=== PATIENT | female | born 1990 | race Asian ===

== ENCOUNTER 2020-04-19 06:31 | Inpatient (IN) | payer MEDICAID ==
[~2020-04-19] VITALS: Ht 167.6 cm; Wt 113.4 kg
[2020-04-19] MEDS ORDERED: LACTATED RINGERS 1,000 ML IV SCH (07:00)
[2020-04-19] MEDS ORDERED: DEXT 5%/LR + PITOCIN 20UNITS/L 1,000 ML IV SCH (07:18)
[2020-04-19] MEDS ORDERED: PREN-176 PO (07:20)
[2020-04-19] MEDS ORDERED: ASPI-1497 PO (07:20)
[2020-04-19] MEDS ORDERED: LIDOCAINE HCL 1% 20ML VIAL (Pyxis) INJ INFIL NR (07:30)
[2020-04-19] MEDS ORDERED: IBUPROFEN 400MG TABLET PO PRN (07:30)
[2020-04-19] MEDS ORDERED: RHO(D) IMMUNE GLOBULIN 300 MCG/SYR IM PRN (07:30)
[2020-04-19] MEDS ORDERED: IBUPROFEN 800MG TABLET PO PRN (07:30)
[2020-04-19 07:50] LABS: BASOPHILS % 0.3 % (0.0-2.0); EOSINOPHILS % 1.5 % (0.0-5.0); HEMATOCRIT. 32.5 % (36.0-48.0); HEMOGLOBIN. 11.2 g/dL (12.0-16.0); LYMPHOCYTES % 12.6 % (20.0-50.0); MEAN CORPUSCULAR HEMOGLOBIN 31.4 pg (28.0-32.0); MEAN CORPUSCULAR VOLUME 91.4 fL (81.0-99.0); MEAN PLATELET VOLUME 8.9 fl (7.4-10.4); NEUTROPHILS % 79.6 % (40.0-76.0); PLATELET 176 x1000/uL (130-400); RED BLOOD CELL COUNT 3.56 mill/uL (4.2-5.4); RED CELL DISTRIBUTION WIDTH 12.9 % (11.6-14.6)
[2020-04-19 07:58] LABS: INR 0.9; PARTIAL THROMBOPLASTIN TIME 30.5 sec (23.4-31.0); PROTHROMBIN TIME 9.8 sec (9.6-11.0)
[2020-04-19] MEDS ORDERED: AMPICILLIN 2,000 MG in SODIUM CHLORIDE 0.9% 100 ML IV SCH (08:00)
[2020-04-19 08:25] LABS: HEPATITIS B SURFACE ANTIGEN NEGATIVE
[2020-04-19] MEDS ORDERED: ASPIRIN 81MG TABLET PO SCH (09:00)
[2020-04-19 09:30] VITALS: BP 118/74
[2020-04-19 10:00] VITALS: BP 121/72
[2020-04-19 10:04] LABS: CLARITY URINE CLOUDY (CLEAR); KETONES URINE NEGATIVE (NEGATIVE); LEUKOCYTE ESTERASE URINE TRACE (NEGATIVE); NITRITE URINE NEGATIVE (NEGATIVE); OCCULT BLOOD URINE 3+ (NEGATIVE); PROTEIN URINE NEGATIVE (NEGATIVE); SPECIFIC GRAVITY URINE 1.013 (1.005-1.030); UROBILINOGEN URINE 0.2 E.U./dL (0.2-1.0)
[2020-04-19 10:08] LABS: COLOR URINE ORANGE (YELLOW)
[2020-04-19 11:45] LABS: *AMPHETAMINES SCREEN URINE NEGATIVE (NEGATIVE); *COCAINE SCREEN URINE NEGATIVE (NEGATIVE)
[2020-04-19 11:46] LABS: *BENZODIAZEPINES SCREEN URINE NEGATIVE (NEGATIVE); CANNABINOID URINE SCREEN NEGATIVE (NEGATIVE); METHADONE URINE SCREEN NEGATIVE (NEGATIVE); OPIATES URINE SCREEN NEGATIVE (NEGATIVE)
[2020-04-19 11:48] LABS: *BARBITURATES SCREEN URINE NEGATIVE (NEGATIVE)
[2020-04-19 11:49] LABS: PHENCYCLIDINE URINE SCREEN NEGATIVE (NEGATIVE)
[2020-04-19] MEDS: AMPICILLIN 1,000 MG in SODIUM CHLORIDE 0.9% 50 ML IV SCH ×2 (14:02→20:21)
[2020-04-19 17:05] VITALS: BP 122/82
[2020-04-19 19:30] VITALS: BP 112/63
[2020-04-20] MEDS: AMPICILLIN 1,000 MG in SODIUM CHLORIDE 0.9% 50 ML IV SCH ×2 (02:10→08:08)
[2020-04-20 04:00] VITALS: BP 118/73
[2020-04-20 06:28] LABS: BASOPHILS % 0.5 % (0.0-2.0); EOSINOPHILS % 2.2 % (0.0-5.0); HEMATOCRIT. 28.4 % (36.0-48.0); HEMOGLOBIN. 9.8 g/dL (12.0-16.0); LYMPHOCYTES % 20.9 % (20.0-50.0); MEAN CORPUSCULAR HEMOGLOBIN 31.3 pg (28.0-32.0); MEAN CORPUSCULAR VOLUME 90.9 fL (81.0-99.0); MEAN PLATELET VOLUME 8.9 fl (7.4-10.4); MONOCYTES % 6.3 % (2.0-8.0); NEUTROPHILS % 70.1 % (40.0-76.0); PLATELET 185 x1000/uL (130-400); RED BLOOD CELL COUNT 3.13 mill/uL (4.2-5.4); RED CELL DISTRIBUTION WIDTH 13.1 % (11.6-14.6)
[2020-04-20 07:30] VITALS: BP 116/72
[2020-04-20 18:00] VITALS: BP 123/80
[2020-04-20 19:00] VITALS: BP 114/83
[2020-04-21 03:00] VITALS: BP 116/81
[2020-04-21] MEDS ORDERED: FERR325T6 MT (07:03)
[2020-04-21] MEDS ORDERED: IBUP-2030 PO (07:03)
[2020-04-21 08:00] VITALS: BP 108/71
== END 2020-04-21 14:30 | disposition home or self-care (01) | DRG 560 ==
LOC: 8 EST LDRP 06:31 → OBSVTOIN 06:31 → 8EST 09:19
PROVIDERS: ADMIT Obstetrics & Gynecology; ATTEND Obstetrics & Gynecology
PROC: 10E0XZZ Delivery of Products of Conception, External Approach (ICD-10-PCS; principal; 2020-04-19)
PROC: 0KQM0ZZ Repair Perineum Muscle, Open Approach (ICD-10-PCS; 2020-04-19)
DX: O77.0 Labor and delivery complicated by meconium in amniotic fluid (principal); Z3A.39 39 weeks gestation of pregnancy; Z37.0 Single live birth; Z95.2 Presence of prosthetic heart valve; O70.1 Second degree perineal laceration during delivery
CPT/HCPCS: 36415; 80305; 81003; 85025; 86592; 86703; 86762; 86850; 86900; 87340; 99281; J0290; J2590; J3490; J7050; J7120